=== PATIENT | male | born 1950 | race Caucasian/White ===

== ENCOUNTER 2019-03-24 04:56 | Inpatient (IN) ==
--- NOTE | 2019-02-14 15:50 | PAT Medication Instructions ---
Medication Instructions Date of Service February 14, 2019 Home Medications lisinopril 40 mg PO QAM lovastatin 40 mg PO QAM multivitamin 1 cap PO QAM sertraline 100 mg PO QAM DO NOT take the morning of surgery lisinopril 40 mg PO QAM multivitamin 1 cap PO QAM Take morning of surgery With a small sip of water, OTHERWISE NOTHING TO EAT OR DRINK AFTER MIDNIGHT: lovastatin 40 mg PO QAM sertraline 100 mg PO QAM Other Notes If you have any questions please call us at [phone] or [phone] or [phone] or [phone]
--- NOTE | 2019-02-15 12:30 | Anesthesiology Consultation ---
Date of Service February 15, 2019 Assessment & Plan (1) Encounter for pre-operative examination: Chart Review Chart Review: Acceptable Risk for Surgery and Patient seen in Pre Admission Testing Teaching & Discussion Pre-Anesthesia Teaching/Discussion Notes: Instructed NPO after midnight before surgery,except medications with 15 cc of water. Medication instructions provided according to the PAT guidelines. History Surgery Operation Date: 03/24/19 12:40 Proposed Procedures p Left Total Versus Reverse Shoulder Replacement - Michael Gonzales DO Height/Weight Height: 5 ft 10 in Weight: 78.3 kg Allergies Allergy/AdvReac Type Severity Reaction Status Date / Time No Known Allergies Allergy Verified 02/14/19 11:02 Medications Home Medications Medication Instructions Recorded Confirmed Last Taken lisinopril 40 mg PO QAM 02/14/19 02/14/19 02/13/19 lovastatin 40 mg PO QAM 02/14/19 02/14/19 02/13/19 multivitamin 1 cap PO QAM 02/14/19 02/14/19 02/13/19 sertraline 100 mg PO QAM 02/14/19 02/14/19 02/13/19 Past Medical History Medical History History of anxiety History of depression Hyperlipidemia Hypertension Exercise / Class Metabolic Activity II 4-5 Yardwork/Stairs/Walk up hill Past Surgical History Surgical History History of Achilles tendon repair X3 TOTAL (SUBSEQUENT SURGERIES 2/2 INFECTION) History of colonoscopy History of surgery RLE History of total right knee replacement Past Anesthesia History No Hx of Anesthesia Complications and No Family Hx of Anesthesia Complications History of PONV No Hx of PONV and No Hx of Motion Sickness Social History Smoking Status: Never smoker Do You Dip or Chew Tobacco: No Hx Alcohol Use: Yes Alcohol type: beer alcohol intake frequency: a few times a month Hx Substance Use: No substance use type: does not use Review of Systems Patient denies chest pain, shortness of breath, dyspnea on exertion, reflux, cough, wheezing, palpitations. Physical Exam Vital Signs VITALS BP 150/94 P 58 TEMP 98.3 SP02 95%RA RESP 16 PHYSICAL Full neck and c-spine range of motion. Full TMJ range of motion. TMD 3 finger breaths Mallampati Score 2 Dentition: missing molars, upper front crown Lungs: clear throughout to auscultation Cardiac: regular rate and rhythm, no murmurs noted Spine: normal Carotid arteries: negative bruit Extremities: no edema Testing Laboratory Results 02/15/19 12:55 02/15/19 12:55 02/15/19 12:55 PT 10.3 INR 1.0 APTT 27.9 02/15/19 T&S A+Ab- Electrocardiogram Date: 02/15/19 SR with first degree AVB at 66bpm Chest X-Ray Date: 02/15/19 Findings: + NAD
--- NOTE | 2019-02-15 13:21 | XRay Report ---
XR chest Pre-admission PA/Lat CLINICAL HISTORY: Preoperative evaluation. COMPARISON STUDY: No previous studies for comparison. FINDINGS: Lung volumes are normal. There is no pneumothorax or pleural effusion. There is no consolid ation or evidence for pulmonary edema. Cardiomediastinal silhouette is unremarkable. Pulmonary vascul arity is normal. IMPRESSION: No acute cardiopulmonary findings. Electronically signed by: Chang Sidhu M.D. 02/15/2019 1:20 PM
[2019-02-15 14:49] LABS: Basophils # (auto) 0.05 K/uL (0-0.2); Basophils % (auto) 0.6 %; Eosinophils # (auto) 0.13 K/uL (0-0.5); Eosinophils % (auto) 1.5 %; Hematocrit (blood only) 44.1 % (42-52); Hemoglobin 14.6 g/dL (14.0-18.0); Immature Granulocytes # (auto) 0.04 K/uL (0.00-0.02); Immature Granulocytes % (auto) 0.5 %; Lymphocytes # (auto) 1.64 K/uL (1.2-3.4); Lymphocytes % (auto) 18.8 %; Mean Corpuscular Hgb Conc 33.1 g/dL (32-36); Mean Corpuscular Volume 93.2 fL (80-100); Mean Platelet Volume 10.3 fL (7.4-10.4); Monocytes # (auto) 0.71 K/uL (0.11-0.59); Monocytes % (auto) 8.1 %; Neutrophils # (auto) 6.15 K/uL (1.4-6.5); Neutrophils % (auto) 70.5 %; Platelet Count 221 K/uL (130-400); RDW Coefficient of Variation 13.4 % (11.5-14.5); RDW Standard Deviation 45.8 fL (36.4-46.3); Red Blood Count 4.73 M/uL (4.7-6.1); White Blood Count 8.72 K/uL (4.8-10.8)
[2019-02-15 15:03] LABS: BUN Creatinine Ratio 23.5 (10-20); Creatinine Clr Calc Pharmacy 67.6 ml/min; Est GFR (Non-African American) 71.6; Potassium 4.4 mmol/L (3.5-5.1)
[2019-02-15 15:04] LABS: Partial Thromboplastin Time 27.9 Seconds (21.0-31.0); Prothrombin Time 10.3 Seconds (9.0-12.0)
--- NOTE | 2019-03-22 07:38 | History & Physical Report ---
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 I will possibly have to do a reverse arthroplasty given the amount of the glenoid wear. Will also get a good look of his rotator cuff during the procedure. Postoperatively he will be placed in a sling and kept overnight in the hospital for postoperative medical management. He plans to go to outpatient physical therapy in [place] upon discharge. Present on Admission?: Yes History of Present Illness Chief Complaint: Primary osteoarthritis of the left shoulder Primary Care Provider: NO PCP Harjeet is a pleasant 68-year-old male who is been dealing with chronic increasing left shoulder pain. X-rays and clinical examination have been diagnostic for advanced osteoarthritis of the left shoulder. After failing conservative treatment, he has elected to proceed with a left shoulder arthroplasty. Allergies Allergy/AdvReac Type Severity Reaction Status Date / Time No Known Allergies Allergy Verified 02/14/19 11:02 Home Medications Home Medications Medication Instructions Recorded Confirmed Type lisinopril 40 mg PO QAM 02/14/19 02/14/19 History lovastatin 40 mg PO QAM 02/14/19 02/14/19 History multivitamin 1 cap PO QAM 02/14/19 02/14/19 History sertraline 100 mg PO QAM 02/14/19 02/14/19 History Past Med/Surg History Medical History History of anxiety History of depression Hyperlipidemia Hypertension Surgical History History of Achilles tendon repair X3 TOTAL (SUBSEQUENT SURGERIES 2/2 INFECTION) History of colonoscopy History of surgery RLE History of total right knee replacement Social History Preferred Language: Faroese Communication Ability: Effective Beliefs That Will Affect Care: None Current Living Situation: Alone Feels Safe at Home: Yes Smoking Status: Never smoker Hx Alcohol Use: Yes Alcohol type: beer Hx Substance Use: No Review of Systems All systems reviewed & are unremarkable except as noted in HPI & below Physical Exam Constitutional: WD/WN, vitals as above Eyes: PERRL, conjunctivae normal, anicteric sclerae ENMT: external ear and nose normal, oropharynx normal Neck: trachea midline, no thyromegaly Respiratory: normal respiratory effort Cardiovascular: RRR, no murmur, no edema Gastrointestinal (Abdomen): normal bowel sounds, soft, nontender, no hepatosplenomegaly Musculoskeletal: Physical examination of the left shoulder reveals decreased range of motion and crepitis throughout. He does have some weakness with full can testing and external rotation. He has a Marcell deformity. There is tenderness palpation along the anterior glenohumeral joint line. The right upper extremity is neurovascularly intact. Psychiatric: A+Ox3, euthymic affect Results & Data Diagnostic Findings Radiographs of the left shoulder show osteoarthritis of the glenohumeral joint. There is joint space narrowing, osteophyte formation, and [id number] articulation.
[2019-03-24] MEDS ORDERED: LR 15ML/HR IV SCH (06:00)
[2019-03-24] MEDS ORDERED: CEFAZOLIN 2000MG 2,000 MG/15 ML SYR IV SCH (06:00)
[2019-03-24] MEDS ORDERED: FAMOTIDINE 20 MG TAB PO SCH (06:00)
[2019-03-24] MEDS ORDERED: TRANEXAMIC ACID 1,000 MG **IV Pre-op IV SCH (06:00)
[2019-03-24] MEDS ORDERED: GABAPENTIN 300 MG CAP PO SCH (06:00)
[2019-03-24] MEDS ORDERED: LR 60ML/HR IV SCH (06:00)
[2019-03-24] MEDS ORDERED: ROPIVACAINE 0.5% HCL/PF 150 MG, BUPIVACAINE 0.5% MPF 30 ML, EPINEPHrine 30MG/30ML (OR U... INSTIL SCH (06:00)
[2019-03-24] MEDS ORDERED: ACETAMINOPHEN 500 MG TAB PO SCH (06:00)
[2019-03-24] MEDS ORDERED: BUPIVACAINE 0.5 % 5 MG/1 ML PF 10ML VIAL ONE (06:29)
[2019-03-24] MEDS ORDERED: ORTHO JOINT ANESTHETIC ONE (06:30)
[2019-03-24] MEDS ORDERED: TRANEXAMIC ACID 1,000 MG **IV Intra-op IV SCH (06:30)
[2019-03-24] MEDS ORDERED: fentaNYL citrate 100 MCG/2 ML VIAL ONE ×2 (06:44→06:58)
[2019-03-24] MEDS ORDERED: ONDANSETRON INJ 2 MG/ML 2 ML VIAL ONE (06:44)
[2019-03-24] MEDS ORDERED: MIDAZOLAM HCL 1 MG/ML 2ML VIAL ONE (06:44)
[2019-03-24] MEDS ORDERED: DEXAMETHASONE SOD INJ 4 MG/ML VIAL ONE (06:44)
[2019-03-24] MEDS ORDERED: NEOSTIGMINE METHYLSULFATE 5 MG/5 ML SYR ONE (06:44)
[2019-03-24] MEDS ORDERED: ROCURONIUM BROMIDE 10 MG/ML 5 ML VIAL ONE (06:44)
[2019-03-24] MEDS ORDERED: PROPOFOL IV EMULSION 10 MG/ML 20 ML VIAL IV ONE ×2 (06:44→09:25)
[2019-03-24] MEDS ORDERED: GLYCOPYRROLATE 0.2 MG/ML VIAL ONE ×2 (06:44→07:56)
[2019-03-24] MEDS ORDERED: LIDOCAINE HCL 2% 2 ML VIAL/AMP(20MG/ML) INFIL ONE (06:44)
--- NOTE | 2019-03-24 06:57 | History & Physical Bridge Note ---
Date of Service March 24, 2019 History & Physical Bridge Note I have examined the patient, reviewed the History & Physical and in the interval since the performance of the History & Physical I have noted the following changes of clinical significance: no changes noted
[2019-03-24] MEDS ORDERED: HYDROmorphone INJ 2 MG/ML SYR/VIAL IV PRN (07:19)
[2019-03-24] MEDS ORDERED: ATROPINE SULFATE 0.1 MG/ML 10ML SYR IV PRN (07:19)
[2019-03-24] MEDS ORDERED: LABETALOL HCL IV 5 MG/ML 20ML IV PRN (07:19)
[2019-03-24] MEDS ORDERED: ONDANSETRON INJ 2 MG/ML 2 ML VIAL IV PRN ×2 (07:19→10:10)
--- NOTE | 2019-03-24 08:55 | Operative Report ---
Post Operative Report Pre & Post Diagnosis Operation Date: 03/24/19 07:00 Pre-Op Diagnosis: Left Shoulder Degenerative Joint Disease Post-Op Diagnosis: Left Shoulder Degenerative Joint Disease Procedure Operation Date: 03/24/19 07:00 Actual Procedures p Left Reverse Total Shoulder Replacement(Left) - Michael Gonzales DO Surgeon Michael Gonzales DO Irrigationist Michael Teixeira PAC Estimated Blood Loss 150 Findings Consistent with Post-Op Diagnosis Specimens Left humeral head Complications none Disposition Disposition: Recovery Room Indications Harjeet is a pleasant 68-year-old male who came to my office complaining of severe left shoulder pain. X-rays and clinical examination were diagnostic for advanced osteoarthritis of left shoulder. After failing conservative treatment, he elected to undergo a left shoulder arthroplasty. The amount of dysplasia of his glenoid as well as the tightness and external rotation and the weakness of his rotator cuff, we elected to proceed with a reverse left shoulder arthroplasty. Description of Procedure Implants used: I used a [employer] Comprehensive reverse total shoulder arthroplasty system with a size 15 press fit mini humeral stem, a +5 humeral tray and a +3 humeral bearing, a 25 mm mini baseplate with a 6.5 mm central screw and superior and inferior locking screws, and a size 41 mm eccentric glenosphere. The patient arrived at [facility] for the above procedure. There were seen in the preoperative holding area and the operative extremity was identified and signed. They were given a preoperative antibiotic and an interscalene nerve block. They were taken back to the operating room, laid on table in supine position, and put under general anesthesia. They were then put into the beachchair position. The shoulder was then prepped and draped in yaniv rile fashion. A timeout was done and the patient in the operative extremity was properly identified. A deltopectoral approach was used. Dissection was taken down through the fascia and the deltoid was retracted laterally and the conjoined tendon was retracted medially. The anterior shoulder was exposed. The long head of the biceps tendon was tenodesed to the upper border of the pectoralis major. The subscapularis was then released off the lesser tuberosity with a centimeter of cuff tissue remaining. The inferior capsule was released and the humeral head was dislocated. A canal finding reamer was sent down the center of the humeral canal. Sequential reaming up to a size 15 reamer was done. Off that reamer, a proximal humeral resection guide was placed. The proximal humerus was resected at 135 of inclination and 25 of retroversion. Osteophytes were then removed and the glenoid was exposed. Time was spent doing a complete capsular and labral release. A [employer] signature guide was then attached onto the anterior rim of the glenoid. A 3.2 mm Steinmann pin was then placed in the reverse total shoulder arthroplasty hole. The glenoid baseplate was then reamed. The final size 25 mm mini baseplate was then impacted in the place. A 6.5 mm central screw was then placed followed by superior and inferior locking screws. A 41 mm eccentric glenoid sphere was then impacted into place. Surrounding soft tissues were then injected with 100 cc an orthopedic pain control cocktail. The proximal humerus was then exposed. Sequential broaching of the humerus up to a size 15 broach was done. Off that broach a +8 humeral tray was trialed. The shoulder was then reduced, brought through a full range of motion and felt to be stable. The shoulder was then dislocated and the broach was removed. The final size 15 mini press-fit humeral stem was then impacted into place. A +3 humeral bearing was then snapped onto a +5 humeral tray and the ring-lock mechanism was engaged. The humeral tray was then impacted onto the humeral stem. The shoulder was once again reduced, brought through a full range of motion and felt to be stable. The subscapularis was then tenodesed back to the lesser tuberosity with transosseous FiberWire sutures and side to side sutures with the arm in 45 of external rotation. A dilute betadyne lavage was then done for 3 minutes. The joint was then irrigated with normal saline solution. Hemostasis was obtained. The skin was then closed with 2-0 Vicryl, 3-0V lock suture, and reignald. A soft dressing and a regular arm sling was placed. The patient was then extubated and transferred to a hospital bed. They were taken to the postanesthesia care unit in stable condition. They tolerated the procedure well. I attest to the content of the Intraoperative Record and any orders documented therein. Any exceptions are noted below.
--- NOTE | 2019-03-24 09:35 | XRay Report ---
XR shoulder LT min 2V routine CLINICAL HISTORY: Post shoulder surgery postoperative COMPARISON: None. DISCUSSION: Anatomic alignment posttotal left shoulder arthroplasty. Expected soft tissue postoperati ve change IMPRESSION: Anatomic alignment posttotal left shoulder arthroplasty. The above report was generated using voice recognition software. It may contain grammatical, syntax or spelling errors. Electronically signed by: Rommel Goodwin M.D. 03/24/2019 9:34 AM
[2019-03-24] MEDS ORDERED: OXYCODONE HCL IR 5 MG TAB (IMMEDIATE RELEASE) PO PRN (10:10)
[2019-03-24] MEDS ORDERED: MAGNESIUM HYDROXIDE SUSP 30 ML UDC PO PRN (10:10)
[2019-03-24] MEDS ORDERED: METOCLOPRAMIDE HCL INJ 5 MG/ML 2 ML VIAL IV PRN (10:10)
[2019-03-24] MEDS ORDERED: HYDROmorphone INJ 0.5 MG/0.5 ML SYR IV PRN (10:10)
[2019-03-24] MEDS ORDERED: BISACODYL 10 MG SUPP PR PRN (10:10)
[2019-03-24] MEDS ORDERED: NALOXONE HCL 0.4 MG/1 ML VIAL/CARP IV PRN (10:10)
--- NOTE | 2019-03-24 10:18 | Anesthesiology Progress Note ---
Date of Service March 24, 2019 Anesthesia Post Procedure Vital Signs Vital Signs: Temp Pulse Pulse Resp BP Pulse Ox 03/24/19 09:55 36.4 C L 65 16 111/71 96 03/24/19 09:45 67 15 116/86 96 03/24/19 09:35 71 17 122/71 97 03/24/19 09:25 72 16 125/78 98 03/24/19 09:17 36.1 C L 74 20 113/76 97 03/24/19 05:27 36.7 C 60 18 161/101 H 99 Pain Intensity Left Shoulder: Pain Intensity: 5 Transfer of Care Handoff Completed per policy Notes Mental Status: alert / awake / arousable Patient Amnestic to Procedure: Yes Nausea / Vomiting: adequately controlled Pain: adequately controlled Airway Patency, RR, SpO2: stable & adequate BP & HR: stable & adequate Hydration State: stable & adequate Anesthetic Complications: no major complications apparent
[2019-03-24] MEDS ORDERED: ePHEDrine sulfate 50 MG/ML AMP ONE (11:21)
[2019-03-24] MEDS ORDERED: PHENYLEPHRINE 100MCG/ML 5ML SYR ONE (11:21)
[2019-03-24] MEDS: SODIUM CHLORIDE 0.9% 1000ML 1,000 ML IV SCH ×2 (11:46→21:28)
[2019-03-24] MEDS: KETOROLAC TROMETHAMINE 15 MG/ML VIAL IV SCH ×3 (11:46→23:22)
[2019-03-24] MEDS: ACETAMINOPHEN 500 MG TAB PO SCH ×2 (14:14→21:00)
[2019-03-24] MEDS: CEFAZOLIN 2000MG 2,000 MG/15 ML SYR IV SCH ×2 (14:14→21:29)
[2019-03-24] MEDS: DOCUSATE SODIUM 100 MG CAP PO SCH (20:59)
[2019-03-24] MEDS ORDERED: SENNA 8.6 MG TAB PO SCH (21:00)
[2019-03-25] MEDS: ACETAMINOPHEN 500 MG TAB PO SCH (05:40)
[2019-03-25] MEDS: KETOROLAC TROMETHAMINE 15 MG/ML VIAL IV SCH (05:41)
[2019-03-25 05:42] LABS: Basophils # (auto) 0.02 K/uL (0-0.2); Basophils % (auto) 0.1 %; Eosinophils # (auto) 0.01 K/uL (0-0.5); Eosinophils % (auto) 0.1 %; Hematocrit (blood only) 38.2 % (42-52); Hemoglobin 12.3 g/dL (14.0-18.0); Immature Granulocytes # (auto) 0.03 K/uL (0.00-0.02); Immature Granulocytes % (auto) 0.2 %; Lymphocytes # (auto) 1.99 K/uL (1.2-3.4); Lymphocytes % (auto) 14.8 %; Mean Corpuscular Hgb Conc 32.2 g/dL (32-36); Mean Corpuscular Volume 93.4 fL (80-100); Monocytes # (auto) 1.66 K/uL (0.11-0.59); Monocytes % (auto) 12.4 %; Neutrophils # (auto) 9.72 K/uL (1.4-6.5); Neutrophils % (auto) 72.4 %; Platelet Count 220 K/uL (130-400); RDW Coefficient of Variation 13.6 % (11.5-14.5); RDW Standard Deviation 46.4 fL (36.4-46.3); Red Blood Count 4.09 M/uL (4.7-6.1); White Blood Count 13.43 K/uL (4.8-10.8)
[2019-03-25 06:12] LABS: BUN Creatinine Ratio 20.7 (10-20); Calcium 8.2 mg/dl (8.5-10.1); Creatinine Clr Calc Pharmacy 67.4 ml/min; Est GFR (African American) 85.9; Est GFR (Non-African American) 74.1; Potassium 4.4 mmol/L (3.5-5.1)
--- NOTE | 2019-03-25 08:32 | Orthopedic Progress Note ---
Date of Service March 25, 2019 Assessment & Plan (1) Localized primary osteoarthritis of left shoulder region: Overall he is doing very well. Is not having much pain in the left shoulder. He will be seen by physical therapy today for range of motion exercises. We will discharge him to home later this morning. He plans to use outpatient physical therapy in [place] upon discharge. Present on Admission?: Yes Subjective Harjeet was seen and examined at bedside this morning. Overall is doing very well. Is not having any pain in the left shoulder. He is happy with his progress to this point. He has no complaints. Physical Exam Musculoskeletal: On physical examination of his left shoulder, the dressing is clean and dry. His radial, median, and ulnar nerves are checked and intact his wrist. His axillary nerve is not checked yet. He is wearing a sling as instructed. Results & Data Vital Signs (Past 12 Hours) Vital Signs Temp Pulse Resp BP Pulse Ox 03/25/19 07:48 36.6 C 60 18 136/88 97 03/25/19 03:00 36.6 C 60 14 149/85 H 98 03/24/19 23:19 36.8 C 74 14 115/77 90 Laboratory Results H & H 02/15/19 03/25/19 Range/Units 12:55 05:03 Hgb 14.6 12.3 L (14.0-18.0) g/dL Hct 44.1 38.2 L (42-52) % Coagulation 02/15/19 Range/Units 12:55 INR 1.0 (0.9-1.1) Diagnostic Findings Postoperative x-rays of the left shoulder show the prosthesis to be in anatomic alignment without any evidence of fracture, dislocation, or loosening.
--- NOTE | 2019-03-25 08:34 | Discharge Summary ---
Date of Service March 25, 2019 Admission HPI Per Admitting Provider Harjeet is a pleasant 68-year-old male who is been dealing with chronic increasing left shoulder pain. X-rays and clinical examination have been diagnostic for advanced osteoarthritis of the left shoulder. After failing conservative treatment, he has elected to proceed with a left shoulder arthroplasty. Specialty Data Orthopedic H & H 02/15/19 03/25/19 Range/Units 12:55 05:03 Hgb 14.6 12.3 L (14.0-18.0) g/dL Hct 44.1 38.2 L (42-52) % Coagulation 02/15/19 Range/Units 12:55 INR 1.0 (0.9-1.1) Discharge Data Consultations 03/24/19 10:10 Consult Case Management - Discharge Planning Routine Procedures Performed Operation Date: 03/24/19 07:00 Actual Procedures p Left Reverse Total Shoulder Replacement(Left) - Michael Gonzales DO [facility] Course (1) Localized primary osteoarthritis of left shoulder region: On March 24, 2019 Harjeet arrived at [facility] and underwent a left reverse shoulder arthroplasty without complication. He had a general anesthetic and a left interscalene nerve block. Postoperatively he was placed in a sling and discharged to general orthopedic floors. His hospital course is uneventful. On postoperative day #1 his H&H was stable and his pain was well controlled. He was able to participate well with physical therapy doing range of motion exercises. He was then discharged home with outpatient physical therapy. He will follow-up with orthopedics in 2 weeks. Discharge Instructions Home Medications Medication Instructions Recorded Confirmed lisinopril 40 mg PO QAM 02/14/19 02/14/19 lovastatin 40 mg PO QAM 02/14/19 02/14/19 multivitamin 1 cap PO QAM 02/14/19 02/14/19 sertraline 100 mg PO QAM 02/14/19 02/14/19 Previous Rx's Medication Instructions Recorded oxycodone 5 mg PO Q4H PRN #40 tab 03/25/19
[2019-03-25] MEDS: DOCUSATE SODIUM 100 MG CAP PO SCH (08:59)
[2019-03-25] MEDS ORDERED: SERTRALINE HCL 100 MG TABLET PO SCH (09:00)
[2019-03-25] MEDS ORDERED: LOVASTATIN 20 MG TAB PO SCH (09:00)
[2019-03-25] MEDS ORDERED: MULTIVITAMIN TAB PO SCH (09:00)
[2019-03-25] MEDS ORDERED: LISINOPRIL 40 MG TAB PO SCH (09:00)
--- NOTE | 2019-03-25 10:17 | Anesthesiology Progress Note ---
Date of Service March 25, 2019 Anesthesia Post Procedure Vital Signs Vital Signs: Temp Pulse Pulse Pulse Resp BP Pulse Ox 03/25/19 09:26 36.6 C 65 76 60 18 136/88 97 03/25/19 07:48 36.6 C 60 18 136/88 97 03/25/19 03:00 36.6 C 60 14 149/85 H 98 03/24/19 23:19 36.8 C 74 14 115/77 90 03/24/19 19:06 36.6 C 76 18 131/83 93 03/24/19 15:06 36.5 C 71 16 117/70 96 03/24/19 13:02 68 20 117/74 98 03/24/19 11:59 36.4 C L 67 20 103/73 97 03/24/19 11:02 70 20 113/74 97 03/24/19 10:30 36.4 C L 65 20 138/80 96 Pain Intensity Left Shoulder: Pain Intensity: 2 Transfer of Care Handoff Completed per policy Notes Mental Status: alert / awake / arousable and participated in evaluation Patient Amnestic to Procedure: Yes Nausea / Vomiting: adequately controlled Pain: adequately controlled Airway Patency, RR, SpO2: stable & adequate BP & HR: stable & adequate Hydration State: stable & adequate Anesthetic Complications: no major complications apparent and Pt Satisfied with anesthetic care
== END 2019-03-25 11:00 | disposition home or self-care (01) | DRG 483 ==
LOC: ASU 04:56 → 3E 09:16 → MERGE 12:40